=== PATIENT | female | born 1970 | race American Indian/Alaskan Native ===

== ENCOUNTER 2017-06-08 09:03 | Day surgery (SDC) | payer OTHER ==
[~2017-06-08 09:03] MED LIST: XYLOCAINE 1% 20 mL ONE
[2017-06-08 12:31] LABS: Basophils % (Auto) 0.6 % (0.0-1.8); Eosinophils % (Auto) 1.2 % (0.0-4.3); Hematocrit 39.1 % (30.3-42.9); Hemoglobin 12.7 gm/dl (10.1-14.3); Mean Corpuscular HGB Conc 33 % (30-34); Mean Corpuscular Hemoglobin 26 pg (28-32); Mean Corpuscular Volume 81 fl (79-97); Platelet Count 360 K/mm3 (140-440); Red Blood Count 4.84 M/mm3 (3.65-5.03); Red Cell Distribution Width 14.9 % (13.2-15.2); White Blood Count 7.9 K/mm3 (4.5-11.0)
[2017-06-08] MEDS ORDERED: ZOFRAN IV PRN (12:54)
[2017-06-08] MEDS ORDERED: DILAUDID IV PRN (12:54)
--- NOTE | 2017-06-08 12:55 | Anesthesia Consultation ---
Anesthesia Consult and Med Hx Date of service: 06/08/17 - Airway Anesthetic Teeth Evaluation: Good, Caps (top front) ROM Head & Neck: Adequate Mental/Hyoid Distance: Adequate Mallampati Class: Class II Intubation Access Assessment: Probably Good - Pulmonary Exam CTA: Yes - Cardiac Exam Cardiac Exam: RRR - Pre-Operative Health Status ASA Pre-Surgery Classification: ASA2 Proposed Anesthetic Plan: General - Pulmonary Hx Smoking: No Hx Asthma: No - Cardiovascular System Hx Hypertension: No Hx Valvular Heart Disease: Yes (MITRAL VALVE PROLAPSE) - Central Nervous System Hx Seizures: No CVA: No Hx Psychiatric Problems: No - Endocrine Hx Renal Disease: No Hx Liver Disease: No Hx Non-Insulin Dependent Diabetes: No - Other Systems Hx Alcohol Use: Yes (SOCIALLY) Hx Substance Use: No Hx Cancer: No Hx Obesity: Yes
--- NOTE | 2017-06-08 12:55 | Anesthesia Day of Surgery ---
Anesthesia Day of Surgery - Day of Surgery Patient Examined: Yes Patient is NPO: Yes
[2017-06-08] MEDS ORDERED: VERSED IV NR (13:00)
[2017-06-08] MEDS ORDERED: TRANSDERM-SCOP TD NR (13:00)
[2017-06-08] MEDS ORDERED: ANCEF/STERILE WATER 2 GM/20 ML IV NR (13:00)
[2017-06-08] MEDS ORDERED: NACL 0.9% 1000 ML 1,000 ML IV SCH (13:00)
[2017-06-08] MEDS ORDERED: PEPCID PO NR (13:00)
[2017-06-08] MEDS ORDERED: ZEMURON IV ONE (16:38)
[2017-06-08] MEDS ORDERED: DIPRIVAN 10 MG/ML IV ONE (16:38)
[2017-06-08] MEDS ORDERED: XYLOCAINE MPF 2% ONE (16:38)
[2017-06-08] MEDS ORDERED: DILAUDID ONE (16:38)
[2017-06-08] MEDS ORDERED: NACL 0.9% IR ONE (17:51)
[2017-06-08] MEDS ORDERED: ZOFRAN ONE (19:17)
[2017-06-08] MEDS ORDERED: DECADRON ONE (19:17)
[2017-06-08] MEDS ORDERED: MARCAINE 0.5% 30 ML INFILTRATI ONE (19:33)
[2017-06-08] MEDS ORDERED: ADRENALIN ONE (19:33)
[2017-06-08] MEDS ORDERED: NACL 0.9% 1000 ML 1,000 ML ONE ×2 (19:36→21:01)
[2017-06-08] MEDS ORDERED: NEO SYNEPHRINE ONE (19:44)
[2017-06-08] MEDS ORDERED: NACL 0.9% 0 ML ONE (19:45)
[2017-06-08] MEDS ORDERED: MARCAINE 0.5% INFILTRATI ONE (19:49)
[2017-06-08] MEDS ORDERED: ADRENALIN IV ONE (19:50)
[2017-06-08] MEDS ORDERED: ROBINUL ONE (21:11)
[2017-06-08] MEDS ORDERED: NEOSTIGMINE ONE (21:11)
--- NOTE | 2017-06-08 21:35 | Operative Report ---
PREOPERATIVE DIAGNOSES: 1. Macromastia. 2. Lipodystrophy. 3. Encounter for cosmetic. POSTOPERATIVE DIAGNOSES: 1. Macromastia. 2. Lipodystrophy. 3. Encounter for cosmetic. PROCEDURE: 1. Bilateral reduction mammoplasty. 2. Abdominoplasty. SURGEON: Lloyd Cantu MD TECHNICAL SUPPORT INTERN: Unruly Turner CSA FINDINGS: 1540 g removed from the right breast, 1460 g removed from the left breast. DESCRIPTION OF PROCEDURE: The patient was brought to the operating room and placed on the table in supine position. Following administration of general anesthesia, the breasts and abdomen were prepped with Betadine solution, draped in usual sterile manner. A #10 blade scalpel was used to make a circumareolar skin incision followed by de-epithelization of an inferior dermal pedicle. Modified Cabrera pattern skin markings were incised with scalpel, deepened through subcutaneous fat and breast tissue using the electrocautery. Skin flaps were raised in standard manner as was fashioning of an inferior central mound pedicle. Breasts tissue was resected and sent to pathology as specimen. Hemostasis controlled using electrocautery and closure was performed over 10 mm ALISHA drains using interrupted and running subcuticular 2-0 Monocryl sutures. Mastisol, Steri-Strips, and sterile dressings applied. Attention was then directed to the abdomen where a Pfannenstiel skin incision was made, deepened through subcutaneous fat down to fascia using the electrocautery. A circumumbilical skin incision was made using an #11 blade scalpel. The abdominal wall skin flap was elevated up to the costal margins and xiphoid process superiorly followed by using the electrocautery, followed by plication of anterior rectus fascia using loop #1 horizontal mattress suture oversewn with #1 running Prolene suture followed by placement of three 10 mm ALISHA drains. New site made for the umbilicus and closure performed in standard manner using interrupted and running subcuticular 2-0 Monocryl sutures. Mastisol, Steri-Strips, and sterile dressings applied. The patient tolerated the procedure well and returned to recovery room in stable condition. JOB# [id number] FTW/NTS
[2017-06-08 23:23] VITALS: BP 114/73
== END 2017-06-08 23:30 | disposition home or self-care (01) ==
LOC: OR 09:03
PROVIDERS: ATTEND Plastic Surgery
DX: N62 Hypertrophy of breast (principal); E88.1 Lipodystrophy, not elsewhere classified; Z41.1 Encounter for cosmetic surgery; Z72.89 Other problems related to lifestyle
CPT/HCPCS: 19318; 36415; 81025; 85025; 88305; J0171; J0690; J1100; J1170; J2250; J2405; J2704; J2710; J7030; J2370